=== PATIENT | male | born 1995 | race Caucasian/White ===

== ENCOUNTER 2021-12-10 11:30 | Day surgery (SDC) | payer OTHER, SELFPAY ==
[2021-11-25 13:27] VITALS: BMI 22.3
[2021-12-10 11:45] VITALS: BP 126/75; PULSE 68; RESP 16; TEMP 36.9; O2SAT 100
[2021-12-10] MEDS: LACTATED RINGERS 1,000 ML 150 ML IV CONT (11:57)
--- NOTE | 2021-12-10 12:46 | P.PNAN_ITS ---
Anes - Initial Pre Proc Eval Procedure: Operation Date: 12/10/21 13:15 Proposed Procedures p Esophagogastroduodenoscopy - Jean Marie Kuhn MD Date/Time: 12/10/21 12:46 Surgeon: Jean Marie Kuhn MD Pre Op Diagnosis: Gerd and Dysphagia Patient Data Age: 26 Gender: M Height: 1.63 m Weight: 59.5 kg Last Vital Signs Temp 36.9 C 12/10/21 11:45 Pulse 68 12/10/21 11:45 Resp 16 12/10/21 11:45 BP 126/75 12/10/21 11:45 Pulse Ox 100 12/10/21 11:45 O2 Del Method Room Air 12/10/21 11:45 Allergies Allergy/AdvReac Type Severity Reaction Status Date / Time No Known Allergies Allergy Verified 12/10/21 11:46 Home Medications Medication Instructions Recorded Confirmed Type alprazolam 0.25 mg tablet (Xanax) 0.25 mg PO BID PRN anxiety #15 tabs 10/19/20 12/10/21 Rx sertraline 100 mg tablet See Rx Instructions .Route 06/06/21 12/10/21 Rx .COMPLEX #90 tabs loratadine 10 mg tablet (Claritin) 10 mg PO BID 10/25/21 12/10/21 History omeprazole 20 mg capsule,delayed 20 mg PO DAILY #30 caps 10/25/21 12/10/21 Rx release Patient hx anesthesia problems: none Family hx anesthesia problems: none Results Review: All pre-operative results and documents have been reviewed as part of the pre- operative evaluation. [facility] Past Medical History Medical History Acid reflux disease Bloating Hypospadias Obsessive behaviors Family History Family History Other Family history of mental disorder Social History Social History Smoking status: Never smoker Alcohol intake: never Substance use: never Substance use type: does not use Living arrangements: with family Gender identity (if verbalized by the patient): Male Spiritual care concerns: No Anes - Eval Final PreProcedure Day of Procedure 12/10/21 12:46 Patient weight: normal Heart: regular rate and rhythm Lungs: clear to auscultation Airway: Mallampati scale class II Neurological: alert and oriented Last oral intake: >/= 8 hours ASA classification: II Emergent: no Anesthetic plan: proceed Anesthesia type and monitoring: general GIVS and standard monitoring Results Review: All pre-operative results and documents have been reviewed as part of the pre- operative evaluation. Informed Consent: The patient's anesthetic plan and its attendant risks and benefits were discus sed with the patient/family/POA. Questions were solicited and answers provided to the satisfaction of the patient/family/POA.
--- NOTE | 2021-12-10 13:06 | PM.HPGS ---
History of Present Illness History of Present Illness Consent: Risks, benefits, and alternatives have been discussed and questions answered. Patient agrees to proceed with procedure. Chief complaint: Gerd and Dysphagia Narrative: Zack Kinney is a 26 year old male with longstanding gerd with some relief using 20mg omeprazole for last month, never had egd Review of Systems Constitutional: Constitutional: Denies headache(s) and Denies weakness Eyes: Eyes: Denies blurry vision ENT: Reports Normal hearing present, Denies headache(s) and Denies neck pain Cardiovascular: Cardiovascular: Denies chest pain and Denies dyspnea Respiratory: Respiratory: Denies dyspnea Gastrointestinal: Gastrointestinal: Reports no additional gastrointestinal complaints Genitourinary: Genitourinary: Denies dysuria Musculoskeletal: Musculoskeletal: Denies neck pain Integumentary/Breasts: Skin/Breast: Denies dry skin Neurologic: Reports Normal hearing present, Denies headache(s) and Denies weakness Psychiatric: Psychiatric: Denies anxiety Endocrine: Endocrine: Denies change in body appearance Hematologic/Lymphatic: Hematologic/Lymphatic: Denies easy bleeding Allergic/Immunologic: Allergic/Immunologic: Denies urticaria PMF Past Medical History Medical History Acid reflux disease Bloating Hypospadias Obsessive behaviors Family History Family History Other Family history of mental disorder Social History Social History Smoking status: Never smoker Alcohol intake: never Substance use: never Substance use type: does not use Living arrangements: with family Gender identity (if verbalized by the patient): Male Spiritual care concerns: No Meds Home Medications and Allergies Home Medications Medication Instructions Recorded Confirmed Type alprazolam 0.25 mg tablet (Xanax) 0.25 mg PO BID PRN anxiety #15 tabs 10/19/20 12/10/21 Rx sertraline 100 mg tablet See Rx Instructions .Route 06/06/21 12/10/21 Rx .COMPLEX #90 tabs loratadine 10 mg tablet (Claritin) 10 mg PO BID 10/25/21 12/10/21 History omeprazole 20 mg capsule,delayed 20 mg PO DAILY #30 caps 10/25/21 12/10/21 Rx release Allergies Allergy/AdvReac Type Severity Reaction Status Date / Time No Known Allergies Allergy Verified 12/10/21 11:46 Vital Signs Vital Signs - 24 hr 12/10/21 11:45 Temperature 98.4 F Pulse Rate 68 Respiratory Rate 16 Blood Pressure 126/75 Pulse Oximetry 100 Oxygen Delivery Room Air Exam Const: General: comfortable and no acute distress HENMT: Face/Nose/Sinus: Normal nares present Eyes: General: appearance normal, both eyes and all related structures Neck: Neck: no JVD Resp: Auscultation: clear to auscultation bilaterally Cardio: Rate: regular rate Rhythm: regular rhythm GI: Inspection: non-distended GI Palp: Yes Soft to palpation Skin: General skin exam: normal color Neuro: General: gait normal Speech: normal speech Extrem: General: normal to inspection Psych: Mental Status: mental status grossly normal Assessment and Plan Assessment and plan (1) Acid reflux disease: Code(s): K21.9 - Gastro-esophageal reflux disease without esophagitis Status: Acute Assessment and Plan: egd with bx
[2021-12-10 13:21] VITALS: BP 106/59; PULSE 79; RESP 16; O2SAT 100
--- NOTE | 2021-12-10 13:25 | WPDANESPN ---
Anes - Prog Note Post-Op Date/Time: 12/10/21 13:25 Cardiovascular status: normal Respiratory status: normal Airway patency: baseline Mental status: baseline Post-Op hydration status: normal Vital Signs: Last Vital Signs Temp 36.9 C 12/10/21 11:45 Pulse 68 12/10/21 11:45 Resp 16 12/10/21 11:45 BP 126/75 12/10/21 11:45 Pulse Ox 100 12/10/21 11:45 O2 Del Method Room Air 12/10/21 11:45 Pain Score (VAS): 0/10 I/O: Intake & Output 12/09/21 12/10/21 12/10/21 23:59 07:59 15:59 Intake Total 300 Balance 300 Patient Feedback: Patient satisfied with anesthetic care.
[2021-12-10 13:31] VITALS: BP 107/67; PULSE 74; RESP 16; O2SAT 100
--- NOTE | 2021-12-10 13:37 | WPDANESPN ---
Anes - Prog Note Post-Op Date/Time: 12/10/21 13:37 Cardiovascular status: normal Respiratory status: normal Airway patency: baseline Mental status: baseline Post-Op hydration status: normal Vital Signs: Last Vital Signs Temp 36.9 C 12/10/21 11:45 Pulse 68 12/10/21 11:45 Resp 16 12/10/21 11:45 BP 126/75 12/10/21 11:45 Pulse Ox 100 12/10/21 11:45 O2 Del Method Room Air 12/10/21 11:45 Pain Score (VAS): 0/10 I/O: Intake & Output 12/09/21 12/10/21 12/10/21 23:59 07:59 15:59 Intake Total 300 Balance 300 Patient Feedback: Patient satisfied with anesthetic care.
[2021-12-10 13:41] VITALS: BP 123/67; PULSE 70; RESP 16
--- NOTE | 2021-12-10 14:09 | SUR.PHASEII ---
LATE NOTE, 1400; PT AWAKE AND ALERT. DRINKING APPLE JUICE AND EATING CRACKERS. DENIES PAIN. FAMILY AT BEDSIDE. READY FOR DISCHARGE,.
== END 2021-12-10 14:08 | disposition home or self-care (01) ==
PROVIDERS: PCP Family Medicine; Visit Provider Internal Medicine Gastroenterology
PROC: 0DJ08ZZ Inspection of Upper Intestinal Tract, Via Natural or Artificial Opening Endoscopic (ICD-10-PCS; CPT 43235; principal; 2021-12-10 13:15)
DX: K21.9 Gastro-esophageal reflux disease without esophagitis (principal)
CPT/HCPCS: 43239

== ENCOUNTER 2021-12-10 13:00 | Outpatient (NON) | payer OTHER, SELFPAY | END 2021-12-10 13:01 | disposition home or self-care (01) | PROVIDERS: PCP Family Medicine; Visit Provider Internal Medicine Gastroenterology | DX: K21.9 Gastro-esophageal reflux disease without esophagitis (principal) | CPT/HCPCS: 88305 ==

== ENCOUNTER 2022-09-22 01:17 | Day surgery (SDC) | payer OTHER, SELFPAY ==
[2022-09-10 12:52] VITALS: BMI 24.0
[2022-09-22 06:21] VITALS: BP 136/88; PULSE 83; RESP 18; TEMP 36.3; O2SAT 100
[2022-09-22] MEDS: LACTATED RINGERS 1,000 ML 150 ML IV CONT (06:29)
--- NOTE | 2022-09-22 07:21 | WPDANESEPPF ---
Anes - Initial Pre Proc Eval Procedure: Operation Date: 09/22/22 07:30 Proposed Procedures p Colonoscopy - Jean Marie Kuhn MD s [facility] Hemorrhoid Treatment - Jean Marie Kuhn MD Date/Time: 09/22/22 07:21 Surgeon: Jean Marie Kuhn MD Pre Op Diagnosis: IBS-D,Hemorrhoids,Hemorrhage of anus/rectum Patient Data Age: 26 Gender: M Height: 1.63 m Weight: 60.5 kg Last Vital Signs Temp 97.3 F L 09/22/22 06:21 Pulse 83 09/22/22 06:21 Resp 18 09/22/22 06:21 BP 136/88 09/22/22 06:21 Pulse Ox 100 09/22/22 06:21 O2 Del Method Room Air 09/22/22 06:21 Allergies Allergy/AdvReac Type Severity Reaction Status Date / Time No Known Allergies Allergy Verified 09/22/22 06:20 Home Medications Medication Instructions Recorded Confirmed Type loratadine 10 mg tablet (Claritin) 10 mg PO BID 10/25/21 09/10/22 History sertraline 25 mg tablet See Rx Instructions PO DAILY #60 08/28/22 09/10/22 Rx tabs dicyclomine 20 mg tablet 20 mg PO .every 6 hours PRN 09/03/22 09/10/22 Rx abdominal pain #120 tabs omeprazole 40 mg capsule,delayed 40 mg PO DAILY 09/10/22 09/10/22 History release Patient hx anesthesia problems: none Family hx anesthesia problems: none Results Review: All pre-operative results and documents have been reviewed as part of the pre-operative evaluation. [facility] Past Medical History Medical History (Updated 09/03/22 @ 12:01 by Nya Bettencourt APRN) Acid reflux disease Bloating Bright red blood per rectum Hypospadias Internal hemorrhoids Irritable bowel syndrome with diarrhea Obsessive behaviors Rectal pain Family History Family History Other Family history of mental disorder Social History Social History Smoking status: Never smoker Alcohol intake: never Substance use: never Substance use type: does not use Lack of Transportation: No Lack of Food: Never True Current Housing: I Have Housing Concerned About Future Housing: No Difficulty Paying Gas/Electric Bills: No Difficulty Paying for Meds: No Currently Unemployed: No Education: Bachelor's Degree Difficulty w/ Childcare or Family Care: No Living arrangements: alone Gender identity (if verbalized by the patient): Male Spiritual care concerns: No Anes - Eval Final PreProcedure Day of Procedure 09/22/22 07:21 Patient weight: normal Heart: regular rate and rhythm Lungs: clear to auscultation Airway: Mallampati scale class II Neurological: alert and oriented Last oral intake: >/= 8 hours ASA classification: II Emergent: no Anesthetic plan: proceed Anesthesia type and monitoring: general GIVS and standard monitoring Results Review: All pre-operative results and documents have been reviewed as part of the pre-operative evaluation. Informed Consent: The patient's anesthetic plan and its attendant risks and benefits were discussed with the patient/family/POA. Questions were solicited and answers provided to the satisfaction of the patient/family/POA.
--- NOTE | 2022-09-22 07:31 | WPDHPUPDATE1 ---
History and Physical Update Update Date/Time: 09/22/22 07:31 History and Physical has been reviewed, including an updated exam of the patient. There are NO changes in the patient's condition. Risks, benefits, and alternatives have been discussed and questions answered. Patient agrees to proceed with procedure.
[2022-09-22 07:46] VITALS: BP 105/63; PULSE 80; RESP 19; O2SAT 97
[2022-09-22 07:56] VITALS: BP 126/78; PULSE 79; RESP 18; O2SAT 100
[2022-09-22 08:06] VITALS: BP 121/83; PULSE 76; RESP 15; O2SAT 100
== END 2022-09-22 08:20 | disposition home or self-care (01) ==
PROVIDERS: PCP Family Medicine; Visit Provider Internal Medicine Gastroenterology
PROC: 0DJD8ZZ Inspection of Lower Intestinal Tract, Via Natural or Artificial Opening Endoscopic (ICD-10-PCS; CPT 45378; principal; 2022-09-22 07:30)
DX: K58.0 Irritable bowel syndrome with diarrhea (principal); K21.9 Gastro-esophageal reflux disease without esophagitis; K62.89 Other specified diseases of anus and rectum; R46.81 Obsessive-compulsive behavior; Z81.8 Family history of other mental and behavioral disorders
CPT/HCPCS: 45380; 88305; J2704; J7120

== ENCOUNTER 2023-08-17 13:39 | Emergency (ER) | payer OTHER, SELFPAY ==
--- NOTE | ~2023-08-17 | CT_ITS ---
EXAMINATION: CT abdomen pelvis w con DATE: 08/17/2023 17:40 INDICATION: Upper abdominal pain. Nausea and vomiting. TECHNIQUE: Computed tomography (CT) of the abdomen and pelvis was performed with 100 mL Omnipaque 350 intravenous contrast. Automated exposure control and iterative reconstruction technique were employe d. The dose-length product was 251.44 mGy-cm. COMPARISON: None. FINDINGS: The visualized portions of lung bases demonstrate a calcified nodule in left lung, consiste nt with old granulomatous disease. No pleural effusion. The heart size is normal. No pericardial effu cristobal. The liver, gallbladder, spleen, pancreas, adrenal glands, and kidneys are normal. There are no dilated loops of bowel. 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 The appendix is normal. There are no pathological ly enlarged lymph nodes. There is no free intraperitoneal fluid. IMPRESSION: 1. No etiology for the patient's symptoms. Reviewed, dictated and finalized at location E.
[2023-08-17 16:20] VITALS: BP 130/69; PULSE 81; RESP 15; TEMP 36.6; O2SAT 100
--- NOTE | 2023-08-17 16:47 | ED.NAVMDI ---
HPI - Nausea/Vomiting/Diarrhea General Chief complaint: Nausea/Vomiting/Diarrhea <TONY Long Last Filed: 08/17/23 16:59> Stated complaint: n/v <TONY Long Last Filed: 08/17/23 16:59> Time Seen by Provider: 08/17/23 16:48 <TONY Long Last Filed: 08/17/23 16:59> Focused HPI: Patient is a 27 y/o male who presents to the ED with c/o abd pain, N/V. Patient reports hx of anxiety and notes he was buying a house last month and has been under increased stress. Over the past 1 week, he has been having pain throughout his epigastric region and LUQ. He saw his PCP for this and was suspected of having an ulcer r/t stress. He has been doubling his Omeprazole dose this week (80mg daily) but denies improvement. He also reports N/V for the past 3 days, worst in the mornings, decreased appetite, lightheadedness, and diarrhea this morning, which he described as coffee ground. Denies fevers, hematemesis. GENERAL: Well-appearing, well-nourished, and in no acute distress. HEAD: Normocephalic, atraumatic. CHEST: Clear to auscultation. ?No respiratory distress. HEART: Regular rate and rhythm.? ABD: Mild tenderness in LUQ, normoactive BS. No rebound or rigidity. NEURO: ?Alert and oriented x3. Patient screened in triage and initial orders placed.? ?Additional care and disposition to be based upon?diagnostic testing and treatment. <TONY Long Last Filed: 08/17/23 16:59> Source: patient <TNOY Long Last Filed: 08/17/23 16:59> Mode of arrival: ambulatory <TONY Long Last Filed: 08/17/23 16:59> Limitations: no limitations <TONY Long Last Filed: 08/17/23 16:59> History of Present Illness HPI Narrative: Agree with the above triage note. 27-year-old male with history of paranoid schizophrenia, MDD, and GERD presents to the emergency department for epigastric abdominal pain for the past week. Patient reports associated nausea, vomiting and diarrhea that started yesterday. He endorses increased stress within the past month and believes he has an ulcer. states his symptoms are worse when he eats pizza and process foods. States he takes 40 mg for Protonix and recently doubled the dose due to concerns for an ulcer. He denies hematemesis or coffee-ground emesis, denies hematochezia. States he believes he saw dark streaks in his stool yesterday. He has seen Dr. Diane for he was in the past and had an EGD performed on 12/10/2021 which showed [id number] gastritis. He had a colonoscopy performed on 09/22/2022 which was unremarkable. Denies fever, dysuria hematuria, prior abdominal surgeries. <Pat Apodaca PA-C - Last Filed: 08/17/23 19:20> Related Data Home medications: Home Medications Medication Instructions Recorded Confirmed loratadine 10 mg tablet (Claritin) 10 mg PO BID 10/25/21 08/14/23 omeprazole 40 mg capsule,delayed 80 mg PO DAILY 08/14/23 08/14/23 release <TONY Long Last Filed: 08/17/23 16:59> Allergies/Adverse reactions: Allergies Allergy/AdvReac Type Severity Reaction Status Date / Time No Known Allergies Allergy Verified 08/17/23 17:52 <TONY Long Last Filed: 08/17/23 16:59> Review of Systems Review of Systems: CONSTITUTIONAL: Denies fever, chills, or sweats. EYES: Denies visual changes, redness, or discharge. ENT: Denies rhinorrhea, congestion, sore throat, or otalgia. CARDIOVASCULAR: Denies chest pain, palpitations, or edema. RESPIRATORY: Denies cough or dyspnea. GASTROINTESTINAL: See HPI GENITOURINARY: Denies dysuria or hematuria. SKIN: Denies rash or itching. MUSCULOSKELETAL: Denies back pain, joint pain, or myalgia. NEUROLOGIC: Denies headache, numbness, or weakness. PSYCHIATRIC: Denies anxiety or depression. <Pat Apodaca PA-C - Last Filed: 08/17/23 19:20> [facility] Past Medical History
[2023-08-17] MEDS: PANTOPRAZOLE SODIUM IV 40 MG VIAL IV PUSH (16:59)
[2023-08-17 17:04] LABS: Basophils Absolute Auto 0.1 K/mm3 (0.0-0.1); Basophils Percent Auto 0.6 % (0.2-1.2); Eosinophils Absolute Auto 0.7 K/mm3 (0-0.3); Eosinophils Percent Auto 5.8 % (0-4.4); Hematocrit 47.7 % (42.0-52.0); Hemoglobin 16.2 g/dL (14.0-18.0); Immature Granulocyte Absolute 0.46 K/mm3 (0.00-0.031); Immature Granulocyte Percent A 3.8 % (0-0.5); Lymphocytes Absolute Auto 3.25 K/mm3 (0.9-3.2); Mean Corpuscular Hemoglobin 28.5 pg (26-34); Mean Platelet Volume 8.6 fl (7.4-10.4); Neutrophils Absolute Auto 6.6 K/mm3 (1.3-6.7); Neutrophils Percent Auto 54.8 % (45.5-73.1); Platelet Count Result 264 k/mm3 (150-375); Red Blood Count 5.68 M/mm3 (4.6-6.20); Red Cell Distribution Width 13.2 % (11.5-14.5)
[2023-08-17 17:17] LABS: Alanine Aminotransferase 19 U/L (6-50); Albumin Level 4.6 g/dL (3.5-5.1); Alkaline Phosphatase 65 U/L (38-126); Anion Gap 14 mmol/L (4-12); Aspartate Amino Transferase 23 U/L (17-59); Bilirubin,Total 0.5 mg/dL (0.2-1.3); Blood Urea Nitrogen 13 mg/dL (9-20); Calcium 9.2 mg/dL (8.4-10.2); Carbon Dioxide 26 mmol/L (22-30); Chloride 101 mmol/L (98-107); Estimated CRCL calculation 71 ml/min; Estimated Glomerular Filt Rate > 60; Glucose 85 mg/dL (65-110); Lipase 129 U/L (23-300); Potassium 3.9 mmol/L (3.4-5.0); Sodium 141 mmol/L (137-145)
[2023-08-17 17:49] VITALS: BP 137/68; PULSE 85; RESP 16; O2SAT 100
[2023-08-17 18:35] LABS: Appearance Urine Clear (Clear); Bacteria Urine None Seen /hpf; Bilirubin Urine Negative (Negative); Blood Urine Negative (Negative); Color Urine Yellow (Yellow); Glucose Urine UA Negative (Negative); Ketones Urine 1+ mg/dL (Negative); Leukocyte Esterase Ur Negative LEU/UL (Negative); Need Manual Microscopic Reviewed; Nitrate Urine Negative (Negative); Non Pathogenic Casts 0-2; Protein Urine Trace mg/dL (Negative); RBC Urine 0-2 /hpf (0-2); Specific Grav Ur > 1.045 (1.001-1.035); Squamous Epithelial Cell Urine None Seen /hpf (Few); Urobilinogen Urine 0.2 mg/dL (<2.0); WBC Urine 0-5 /hpf (0-3); pH Urine 6.5 (5.0-9.0)
[2023-08-17] MEDS: BELLADONNA ALK/PHENOB ELIX 10 ML, MAG HYDROX/ALUMINUM HYD/SIMETH 30 ML, LIDOCAINE HCL 2... PO (18:36)
[2023-08-17 18:40] LABS: Add Urine Microscopic? YES
--- NOTE | 2023-08-17 18:41 | ED.NAVMDI ---
HPI - Nausea/Vomiting/Diarrhea General Chief complaint: Nausea/Vomiting/Diarrhea Stated complaint: n/v Time Seen by Provider: 08/17/23 16:48 Source: patient Mode of arrival: ambulatory Limitations: no limitations History of Present Illness HPI Narrative: 27-year-old male with history of paranoid schizophrenia, MDD, anxiety and GERD presents to the emergency department for epigastric abdominal pain for the past week. Patient reports associated nausea, vomiting and diarrhea that started yesterday. He endorses increased stress within the past month and believes he has an ulcer. States he takes 40 mg for Protonix and recently doubled the dose due to concerns for an ulcer. He denies hematemesis or coffee-ground emesis, denies hematochezia. States he believes he saw dark streaks in his stool yesterday. He has seen Dr. Diane for he was in the past and had an EGD performed on 12/10/2021 which showed [id number] gastritis. He had a colonoscopy performed on 09/22/2022 which was unremarkable. Related Data Home Medications Medication Instructions Recorded Confirmed loratadine 10 mg tablet (Claritin) 10 mg PO BID 10/25/21 08/14/23 omeprazole 40 mg capsule,delayed 80 mg PO DAILY 08/14/23 08/14/23 release Allergies Allergy/AdvReac Type Severity Reaction Status Date / Time No Known Allergies Allergy Verified 08/17/23 17:52 [facility] Past Medical History Medical History Acid reflux disease Bloating Bright red blood per rectum Hypospadias Internal hemorrhoids Irritable bowel syndrome with diarrhea Obsessive behaviors Rectal pain Family History Family History Other Family history of mental disorder Social History Social History Smoking status: Never smoker Alcohol intake: never Substance use: never Substance use type: does not use Lack of Transportation: No Lack of Food: Never True Current Housing: I Have Housing Concerned About Future Housing: No Difficulty Paying Gas/Electric Bills: No Difficulty Paying for Meds: No Currently Unemployed: No Education: Bachelor's Degree Difficulty w/ Childcare or Family Care: No Living arrangements: alone Gender identity (if verbalized by the patient): Male Spiritual care concerns: No Course Vital Signs Vital signs: Vital Signs Temperature 97.8 F 08/17/23 16:20 Pulse Rate 81 08/17/23 16:20 Respiratory Rate 15 08/17/23 16:20 Blood Pressure 130/69 08/17/23 16:20 Pulse Oximetry 100 08/17/23 16:20 Temperature 97.8 F 08/17/23 16:20 Pulse Rate 85 08/17/23 17:49 Respiratory Rate 16 08/17/23 17:49 Blood Pressure 137/68 08/17/23 17:49 Pulse Oximetry 100 08/17/23 17:49 MDM - Nausea/Vomiting/Diarrhea Lab Data 08/17/23 16:54 08/17/23 16:54 Labs: Lab Results 08/17/23 08/17/23 Range/Units 16:54 18:04 WBC 12.0 H (4.5-10.0) K/mm3 RBC 5.68 (4.6-6.20) M/mm3 Hgb 16.2 (14.0-18.0) g/dL Hct 47.7 (42.0-52.0) % MCV 84.0 (80-100) fl MCH 28.5 (26-34) pg MCHC 34.0 (32-36) g/dl RDW 13.2 (11.5-14.5) % Plt Count 264 (150-375) k/mm3 MPV 8.6 (7.4-10.4) fl Immature Gran % (Auto) 3.8 H (0-0.5) % Neut % (Auto) 54.8 (45.5-73.1) % Lymph % (Auto) 27.0 (18.3-44.2) % [place] % (Auto) 8.0 (2.6-8.5) % Eos % (Auto) 5.8 H (0-4.4) % Baso % (Auto) 0.6 (0.2-1.2) % Lymph # (Auto) 3.25 H (0.9-3.2) K/mm3 [place] # (Auto) 1.0 H (0.1-0.6) K/mm3 Eos # (Auto) 0.7 H (0-0.3) K/mm3 Baso # (Auto) 0.1 (0.0-0.1) K/mm3 Abs Immat Gran (auto) 0.46 H (0.00-0.031) K/mm3 Absolute Neuts (auto) 6.6 (1.3-6.7) K/mm3 Absolute Nucleated RBC 0.000 (0.0-0.012) K/mm3 Nucleated RBC % 0.0 (0.0-0.2) % Sodium 141 (137-145) mmol/L Potassium 3.9 (3.4-5.0) m
[2023-08-17 19:26] VITALS: BP 132/76; PULSE 83; RESP 15; O2SAT 100
== END 2023-08-17 19:28 | disposition home or self-care (01) ==
PROVIDERS: Physician Assistant; Emergency Provider Physician Assistant; PCP Family Medicine
DX: R10.13 Epigastric pain (principal); K21.9 Gastro-esophageal reflux disease without esophagitis
CPT/HCPCS: 36415; 74177; 80053; 81001; 83690; 85025; 96374; 99284; A9270; J2470; Q9967